=== PATIENT | male | born 1960 | race Caucasian/White ===

== ENCOUNTER 2016-10-05 12:54 | Emergency (ER) | payer SELFPAY ==
[~2016-10-05] VITALS: Ht 170.2 cm; Wt 60.9 kg
[2016-10-05] MEDS ORDERED: PERCOCET 5/31 TABLET PO (13:52)
[2016-10-05] MEDS ORDERED: FLEXERIL10 MG PO (13:52)
[2016-10-05 14:04] VITALS: BP 153/90
== END 2016-10-05 14:04 | disposition home or self-care (01) ==
LOC: EME 12:54
DX: S40.011A Contusion of right shoulder, initial encounter (principal); W10.9XXA Fall (on) (from) unspecified stairs and steps, initial encounter
CPT/HCPCS: 73030; 73060; 99281; 99283